=== PATIENT | female | born 1990 | race Caucasian/White ===

== ENCOUNTER → 2021-11-09 | Day surgery (SDC) | payer OTHER ==
[~2021-11-09] MED LIST: COLACE 100MG C100 MG PO; HYDROCODON-ACE1 EAC6 PO; IBUPROFEN600 MG PO
[2021-11-09 07:20] LABS: HEMOGLOBIN 12.1 gm/dl (12.3-15.3); RED BLOOD COUNT 4.34 M/UL (4.00-5.10); WHITE BLOOD COUNT 6.2 K/UL (4.5-11.0)
== END | disposition home or self-care (01) ==
LOC: OR 06:03
PROVIDERS: Obstetrics & Gynecology
DX: O03.4 Incomplete spontaneous abortion without complication (principal); J45.909 Unspecified asthma, uncomplicated; Z88.1 Allergy status to other antibiotic agents; Z88.8 Allergy status to other drugs, medicaments and biological substances; Z79.82 Long term (current) use of aspirin; Z20.822 Contact with and (suspected) exposure to COVID-19
CPT/HCPCS: 81001; 85025; 86850; 86900; 86901; J1100; J1885; J2001; J2250; J2405; J2550; J2704; J2795; J3010; J7030; J7120